=== PATIENT | female | born 1990 | race Two or more races ===

== ENCOUNTER 2017-08-16 11:59 | Emergency (ER) | payer MEDICAID ==
[~2017-08-16] VITALS: Ht 170.2 cm; Wt 99.0 kg
[2017-08-16 12:17] VITALS: BP 155/78
[2017-08-16] MEDS ORDERED: LIDOCAINE HCL 1% 20ML VIAL (Pyxis) INJ ONE (12:19)
[2017-08-16] MEDS ORDERED: BUSP5TAB3 PO (12:21)
== END 2017-08-16 14:27 | disposition home or self-care (01) ==
LOC: ER 13:22
DX: R07.0 Pain in throat (principal); F41.9 Anxiety disorder, unspecified
CPT/HCPCS: 71010; 81025; 99283; J3490